=== PATIENT | male | born 2000 | race Caucasian/White ===

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

== ENCOUNTER → 2021-02-14 15:43 | Outpatient (CLI) | payer MEDICAID, SELFPAY ==
[2020-05-28 07:26] VITALS: BMI 27.1
== END ==
PROVIDERS: Referring Provider Nurse Practitioner Acute Care; Visit Provider Nurse Practitioner Acute Care
DX: U07.1 COVID-19 (principal)
CPT/HCPCS: 87635; C9803; U0002

== ENCOUNTER 2021-07-06 13:09 | Emergency (ER) | payer MEDICAID, SELFPAY ==
[2021-07-06 13:11] VITALS: BP 132/88; PULSE 119; RESP 20; TEMP 37.3; O2SAT 94; BMI 29.2
--- NOTE | 2021-07-06 14:41 | RAD_ITS ---
rScriptor Unformatted Report Format: Options: n 2f 2i act cap dr soria wm wcta sl lj Gender: Male : 2000 Exam: XR Chest 1 View Comparison: History: cough Contrast: at 1553 Reported and signed by: Valente Vivas MD Electronically Signed: Valente Vivas MD at 15:52 EDT Tel , Service support , RAD/Chest 1 View (Portable)
--- NOTE | 2021-07-06 14:42 | EDS_ITS ---
HPI HPI - URI History of Present Illness Chief Complaint: Cough Detail of Chief Complaint: Covid symptoms that started yesterday Informant: patient Narrative Narrative: Patient presents to the emergency department with complaint of cough and runny nose as well as headache that started yesterday. He has had subjective fever. Patient states that he feels achy and has a mild sore throat. He denies any loss of taste or smell. Patient denies sick contacts. Patient states that he and his entire family had Covid earlier in the year. Patient has not been vaccinated against Covid. Prior similar symptoms: Yes ROS ROS ED Constitutional Constitutional ED: Reports systems reviewed and no addt'l complaints, except as documented, fever(s) and subjective; Denies body ache(s), change in weight or chills Eyes Eyes: Denies acute decrease in peripheral vision, change in vision, double vision or loss of vision ENT ENT ED: Reports none, rhinorrhea and sore throat; Denies ear pain, lip swelling, loss taste/smell, neck pain or otalgia Cardiovascular Cardiovascular: Reports none; Denies abdominal pain, chest pain with activity, leg edema, lightheadedness, palpitations, rapid heart rate or syncope Respiratory/Chest Respiratory/Chest: Reports none and cough; Denies change in mental status, dry cough, dyspnea, hemoptysis, shortness of breath at rest or shortness of breath with exertion Gastrointestinal Gastrointestinal: Reports none; Denies abdominal pain, change in stool character, diarrhea, hematemesis, hematochezia, melena, rectal bleeding or vomiting Genitourinary Genitourinary ED: Reports none; Denies abdominal discomfort, anuria, dysuria, genital pain or polyuria Musculoskeletal Musculoskeletal: Reports none; Denies arthralgias, back pain, difficulty walking, extremity pain, muscle weakness or myalgias Integumentary Reports none; Denies abscess or rash Neurologic Neurologic: Reports none; Denies abnormal gait, confusion, focal weakness, frequent falls, headache(s), loss of vision, numbness, paresthesias, radicular pain, vertigo or weakness Psychiatric Psychiatric: Reports systems reviewed and no addt'l complaints, except as documented and none; Denies behavioral changes, confusion, difficulty concentrating, hallucinations, suicidal ideation, tactile hallucinations or visual hallucinations Endocrine Endocrinology: Denies none, cold intolerance, excessive sweating, fatigue or heat intolerance Hematologic/Lymphatic Hematologic/Lymphatic: Reports none; Denies anemia, easy bleeding or easy bruising Allergic/Immunologic Allergic/Immunologic ED: Denies as per HPI, none, lip swelling, mouth swelling, throat swelling, tongue swelling or hives PFSH [facility] Medical History (Updated 07/06/21 @ 16:[address] Storm Renner, DO) ADHD Allergic rhinitis, seasonal Aspergers' syndrome Asthma Asthma, moderate persistent Hay fever Seizures SOB (shortness of breath) Home Medications fluoxetine 20 mg capsule 30 mg PO DAILY 09/02/18 [History Last Taken Unknown] guanfacine 1 mg tablet,extended release 24 hr 2 mg PO DAILY 09/02/18 [History Last Taken Unknown] lisdexamfetamine 50 mg capsule 50 mg PO DAILY 09/02/18 [History Last Taken Unkno wn] albuterol sulfate 90 mcg/actuation aerosol inhaler 2 puff INHALATION Q6H PRN #8.5 g 03/18/21 [Rx Last Taken Unknown] fluticasone furoate 100 mcg/actuation blister powder for inhalation 1 inh INHAL ATION DAILY #30 ea 03/18/21 [Rx Last Taken Unknown] cetirizine 10 mg capsule 10 mg PO DAILY #30 cap 04/03/21 [Rx Last Taken Unknown] benzonatate [Tessalon Perles] 100 mg PO TID PRN #20 cap 07/06/21 [Rx Last Taken Unknown] Allergy/AdvReac Type Severity Reaction Status Date / Time No Known Allergies Allergy Verified 07/06/21 13:11 Family History (Reviewed 06/19/21 @ 09:27 by Loreto Rudd SENIOR JAVA DATA ARCHITECT, SENIOR JAVA DATA ARCHITECT-C) Father Asthma Grandfather Diabetes Mother Subaortic stenosis Other Hypertension Surgical History H/O hernia repair History of repaired hypospadias Social History (Reviewed 06/19/21 @ 09:27 by Loreto Rudd SENIOR JAVA DATA ARCHITECT, SENIOR JAVA DATA ARCHITECT-C) Smoking Status: Never smoker second hand exposure: No alcohol intake: never substance use type: does not use EXAM Physical Exam Const Vital Signs: 07/06/21 13:11 07/06/21 15:02 Temperature 99.1 F Temperature Source Temporal Pulse Rate 119 H Respiratory Rate 20 H Respiratory Effort Normal Non-Labored Respiratory Depth Normal Respiratory Pattern Normal Blood Pressure 132/88 H Blood Pressure Mean 102 Pulse Ox 94 Oxygen Delivery Method Room Air Positive well nourished and well developed General Appearance ED: well developed and NAD HEENT Reports TM's clear and moist mucous membranes normocephalic and atraumatic; Negative for trauma or tenderness Tympanic Membrane ED: Yes TM's clear Eyes PERRL and EOMs intact bilaterally General Eye ED: Negative for pale conjunctiva or scleral icterus Neck no lymphadenopathy, supple and no JVD General: Negative for tenderness Chest Wall inspection of chest normal and palpation of chest normal Chest: Negative for tenderness Resp normal respiratory effort and clear to auscultation bilaterally Effort and Inspection: Negative for respiratory distress or pain with movement Auscultation: Negative for rhonchi, wheezes or diminished lung sounds Cardio regular rate, regular rhythm, S1 normal heart sound, S2 normal heart sound and no murmurs Peripheral Pulses: pulses 2+ throughout GI normal to inspection, nondistended, normoactive bowel sounds, soft to palpation, non-tender, non-distended and no masses Back/Spine no CVA tenderness and no thoracic nor lumbar tenderness Extremity normal to inspection General Extremety ED: Negative for edema General Extremity: Negative for edema Neuro oriented x3, CN's II-XII intact bilaterally, no sensory deficits noted and gait normal Sensorium / Orientation: awake, alert, oriented to person, oriented to place and oriented to time Motor Exam: strength 5/5 throughout and strength abnormal Psych mental status grossly normal Skin no rashes or lesions noted and no wounds MDM MDM MDM Narrative Medical decision making narrative: Patient's work-up unremarkable. Patient's vital signs are stable. I suspect a viral URI. I will write him for Elise Milner for the cough. He is advised to push fluids and treat fever with Motrin or Tylenol. Patient to follow-up with his primary care physician 5 to 7 days. He is to return if increased difficulty breathing or condition should worsen anyway. Lab Data Attestation: I reviewed the patient's lab results. Radiography Diagnostic Testing: Radiology Impression Chest X-Ray 07/06/21 14:41 1 view chest x-ray obtained interpreted by myself as no acute disease process. Official report from radiology pending. Discharge Plan Triage Chief Complaint: Cough ED Provider: Storm Renner Dx/Rx/DC Orders Clinical Impression: Upper respiratory infection, viral Instructions: ED URI, Viral, No Abx (Adult) Prescriptions: New benzonatate [Tessalon Perles] 100 mg capsule 100 mg PO TID PRN (Reason: cough) Qty: 20 RF: 0 No Action guanfacine [Intuniv ER] 1 mg tablet extended release 24 hr 2 mg PO DAILY RF: 0 fluoxetine [Prozac] 20 mg capsule 30 mg PO DAILY RF: 0 Vyvanse 50 mg capsule 50 mg PO DAILY RF: 0 Arnuity Ellipta 100 mcg/actuation blister with device 1 inh INHALATION DAILY Qty: 30 RF: 11 albuterol sulfate 90 mcg/actuation HFA aerosol inhaler 2 puff inhalation Q6H PRN (Reason: shortness of breath or wheezing) Qty: 8.5 RF: 1 Zyrtec 10 mg capsule 10 mg PO DAILY Qty: 30 RF: 6 Primary Care Provider: Care Physician,No Primary Referrals: Gregory Gray MD [STAFF PHYSICIAN] - 5-7 Days Care Physician,No Primary [Primary Care Provider] -
== END 2021-07-06 16:40 | disposition home or self-care (01) ==
LOC: ED 14:46
PROVIDERS: Emergency Provider Emergency Medicine
DX: J06.9 Acute upper respiratory infection, unspecified (principal); F90.9 Attention-deficit hyperactivity disorder, unspecified type; J45.40 Moderate persistent asthma, uncomplicated; F84.5 Asperger's syndrome; G40.909 Epilepsy, unspecified, not intractable, without status epilepticus; Z79.899 Other long term (current) drug therapy
CPT/HCPCS: 71045; 87426; 87804; 99282

== ENCOUNTER → 2021-07-28 16:44 | Emergency (ER) | payer MEDICAID, SELFPAY ==
[2021-07-28 16:44] VITALS: BP 123/72; PULSE 98; RESP 18; TEMP 36; O2SAT 96; BMI 29.9
== END ==
DX: Z53.21 Procedure and treatment not carried out due to patient leaving prior to being seen by health care provider (principal)

== ENCOUNTER 2022-01-03 15:32 | Emergency (ER) | payer MEDICAID, SELFPAY ==
[2022-01-03 15:33] VITALS: BP 141/76; PULSE 101; RESP 16; TEMP 36.7; O2SAT 94; BMI 29.9
--- NOTE | 2022-01-03 15:42 | EKG12_ITS ---
Test Reason : ANXIETY Blood Pressure : / mmHG Vent. Rate : 094 BPM Atrial Rate : 094 BPM P-R Int : 158 ms QRS Dur : 090 ms QT Int : 352 ms P-R-T Axes : 039 032 030 degrees QTc Int : 440 ms Normal sinus rhythm Nonspecific ST abnormality Abnormal ECG Confirmed by TAMMY MANCILLA, YELENA ([id number]), market editor LEONA LEE ([id number]) on 01/07/2022 12:35:01 P M Referred By: JEF Confirmed By:ABNER MUNOZ MD
--- NOTE | 2022-01-03 15:42 | RAD_ITS ---
STUDY: X-RAY CHEST REASON FOR EXAM: Male, 21 years old. PT WITH SUDDEN ONSET SOB. REPORTS INCREASED STRESS, HAS HAD COUGH X A COUPLE DAYS TECHNIQUE: AP COMPARISON: 07/06/2021 FINDINGS: The lungs are clear and expanded. There is no demonstrated pleural abnormality. Normal size heart. Normal mediastinum and tao. Normal visualized pulmonary arteries. Normal visualized aortic arch and descending thoracic aorta. Normal visualized thoracic spine. Normal visualized ribs, clavicles, and shoulders. There is no demonstrated abnormality of the visualized soft tissue structures of the upper abdomen. RAD/Chest 1 View (Portable) IMPRESSION: Nonacute portable x-ray examination of the chest. Electronically Signed: Vasquez Arellano MD (Brooks) at 16:04 EST ,
--- NOTE | 2022-01-03 15:44 | EDS_ITS ---
HPI <SILVIA Emmanuel - Last Filed: 01/03/22 16:34> History of Present Illness Chief Complaint: Anxiety Narrative Narrative: 21-year-old male with PMH of asthma, anxiety presents with shortness of breath. For the last 3 to 4 days he has had a dry cough and felt slightly short of breath. He started using an inhaler and prednisone 50 mg tablets that he had lying around from a previous illness. Today while working at [employer] he started to feel anxious because a lot of orders started to come in it once. He felt like his mind was racing and he developed acute worsening of his shortness of breath and had some midsternal chest pain. He is also having a dry cough with the symptoms and feels nauseous. No vomiting. No recent fever, chills, abdominal pain, flank pain, or leg pain or swelling. He did have COVID-19 1 month ago. PFSH <SILVIA Emmanuel - Last Filed: 01/03/22 16:34> [facility] Medical History ADHD Allergic rhinitis, seasonal Aspergers' syndrome Asthma Asthma, moderate persistent COVID-19 Hay fever Seizures SOB (shortness of breath) Home Medications fluoxetine 20 mg capsule 30 mg PO DAILY 09/02/18 [History Last Taken Unknown] guanfacine 1 mg tablet,extended release 24 hr 2 mg PO DAILY 09/02/18 [History Last Taken Unknown] lisdexamfetamine 50 mg capsule 50 mg PO DAILY 09/02/18 [History Last Taken Unknown] cetirizine 10 mg capsule 10 mg PO DAILY #30 cap 04/03/21 [Rx Last Taken Unknown] benzonatate [Tessalon Perles] 100 mg PO TID PRN #20 cap 07/06/21 [Rx Last Taken Unknown] guaifenesin 600 mg tablet, extended release 12 hr 600 mg PO Q12H PRN #14 tab 10/11/21 [Rx Last Taken Unknown] albuterol sulfate 90 mcg/actuation aerosol inhaler 2 puff INHALATION Q6H PRN #8.5 g 12/24/21 [Rx Last Taken Unknown] fluticasone furoate 100 mcg/actuation blister powder for inhalation 1 inh INHALATION DAILY #30 ea 12/24/21 [Rx Last Taken Unknown] hydroxyzine HCl 25 mg PO TID #14 tab 01/03/22 [Rx Last Taken Unknown] prednisone 50 mg PO DAILY 01/03/22 [History Last Taken Unknown] Allergy/AdvReac Type Severity Reaction Status Date / Time No Known Allergies Allergy Verified 01/03/22 15:33 Family History Father Asthma Grandfather Diabetes Mother Subaortic stenosis Other Hypertension Surgical History H/O hernia repair History of repaired hypospadias Social History Smoking Status: Never smoker second hand exposure: No alcohol intake: never substance use type: does not use ROS <SILVIA Emmanuel - Last Filed: 01/03/22 16:34> ROS ED ROS Narrative Constitutional: Negative for fever, chills, malaise. Eyes: Negative for visual change. ENT: Negative for sore throat, ear pain, rhinorrhea. CVS: Positive for chest pain. Negative for palpitations, syncope. Respiratory: Positive for shortness of breath, cough. Negative for orthopnea. GI: Positive for nausea. Negative for abdominal pain, vomiting, diarrhea, co nstipation, melena, hematochezia. : Negative for dysuria, hematuria or frequency. Neuro: Negative for headache, motor/sensory dysfunction. Skin: Negative for rash, abscess, or wound. Musc: Negative for joint pain, swelling, trauma. Heme: Negative for easy bruising, bleeding, lymphadenopathy. EXAM <SILVIA Emmanuel - Last Filed: 01/03/22 16:34> Physical Exam Narrative Exam Narrative: CONST: Patient sitting in no acute distress. EYES: Normal inspection. NECK: Normal inspection. RESP: No respiratory distress, CTAB. CVS: Regular rate and rhythm, no murmur, no gallop. ABD: Soft and nontender, no guarding or rebound, nondistended. SKIN: Color normal, no rash, warm, dry, intact. EXTREMITIES: Normal appearance, no pedal edema, no calf tenderness. 2+ radial and PT pulses. NEURO: Oriented x4. PSYCH: Normal affect. Const Vital Signs: 01/03/22 15:33 01/03/22 15:46 01/03/22 16:49 Temperature 98.0 F Temperature Source Oral Pulse Rate 101 H 84 Respiratory Rate 16 16 Respiratory Effort Short of Breath Blood Pressure 141/76 H 138/79 H Blood Pressure Mean 97 Pulse Ox 94 97 Oxygen Delivery Method Room Air Room Air <Dr. Gregory Katz DO - Last Filed: 01/03/22 18:14> Physical Exam Const Vital Signs: 01/03/22 15:33 01/03/22 15:46 01/03/22 16:49 Temperature 98.0 F Temperature Source Oral Pulse Rate 101 H 84 Respiratory Rate 16 16 Respiratory Effort Short of Breath Blood Pressure 141/76 H 138/79 H Blood Pressure Mean 97 Pulse Ox 94 97 Oxygen Delivery Method Room Air Room Air MDM <SILVIA Emmanuel - Last Filed: 01/03/22 16:34> [facility] MDM Narrative Medical decision making narrative: Patient presented with chest pain, shortness of breath, and cough that started while becoming acutely anxious at work. He appears well nontoxic. Heart rate was 100?1 05, otherwise normal vital signs. On exam he is sitting in no acute distress and heart is regular, lungs clear to auscultation, abdomen soft and nontender. There is no lower extremity swelling or calf tenderness. EKG was obtained and is normal sinus rhythm with no acute ischemia. Chest x-ray is negative. His symptoms are most consistent with an anxiety attack. He has a history of anxiety that is untreated as he has not been on an SSRI in over 6 months. He did have clinical improvement after hydroxyzine will be prescribed this for home to take as needed. I recommend he follow-up with his primary care doctor for further anxiety management. He was counseled to return for new or worsening symptoms. Diagnosis 1. Anxiety attack Lab Data Attestation: I reviewed the patient's lab results. Radiography Chest X-Ray - ED: 1 View, Read by ED Physician, Normal, Heart, Lungs, Mediastinum, Bony Structures and No Acute Disease Diagnostic Testing: Clinical Impression(s) from Imaging Studies Chest X-Ray 01/03/22 15:42 IMPRESSION: Nonacute portable x-ray examination of the chest. Electronically Signed: Vasquez Arellano MD (Brooks) at 16:04 EST , EKG Initial EKG: Attestation: I personally reviewed and interpreted this EKG as follows: Interpretation: Sinus Rhythm Comments: NSR, normal intervals, no acute ischemic changes <Dr. Gregory Katz, DO - Last Filed: 01/03/22 18:14> [facility] Narrative Medical decision making narrative: Patient was seen with me. I agree with the history and physical examination. Patient presents with anxiety and shortness of breath that began today while he was at work. Patient states that work became very stressful. Patient states that he started feeling short of breath when this occurred. Patient states his symptoms are improving since arriving to the emergency department. Patient denies any chest pain. Patient denies any nausea or vomiting. Vital signs are stable. Patient is afebrile. Patient is in no acute distress. Oral mucosa is pink and moist. Heart was regular rate and rhythm. Lungs are clear and equal bilaterally. Abdomen is soft. Bowel sounds are normal. There is no tenderness. Cranial nerves II through XII are intact. There are no focal motor or sensory deficits. Portable 1 view chest x-ray was obtained. On my interpretation, lung loza are clear. There is normal cardiac silhouette. Bony thorax is normal. There is no acute process noted. Radiologist also interpreted the x-ray and agrees. EKG was obtained. There is a normal sinus rhythm. There are no acute ST or T wave changes. Patient was given a dose of hydroxyzine here. Patient feels better on reevaluation. Patient was instructed to follow-up with his primary care physician in 3 to 5 days. Patient understood and was agreeable with the plan. All questions were answered. Radiography Diagnostic Testing: Clinical Impression(s) from Imaging Studies Chest X-Ray 01/03/22 15:42 IMPRESSION: Nonacute portable x-ray examination of the chest. Electronically Signed: Vasquez Arellano MD (Brooks) at 16:04 EST Reading Location ID and State: [facility] / [place] , Service support , Discharge Plan Triage Chief Complaint: Anxiety ED Provider: Kaitlin Tam Dx/Rx/DC Orders Clinical Impression: Anxiety Instructions: Anxiety Disorders Tx Therapy Prescriptions: New hydroxyzine HCl 25 mg tablet 25 mg PO TID Qty: 14 RF: 0 No Action guanfacine [Intuniv ER] 1 mg tablet extended release 24 hr 2 mg PO DAILY RF: 0 fluoxetine [Prozac] 20 mg capsule 30 mg PO DAILY RF: 0 Vyvanse 50 mg capsule 50 mg PO DAILY RF: 0 Arnuity Ellipta 100 mcg/actuation blister with device 1 inh INHALATION DAILY Qty: 30 RF: 11 albuterol sulfate 90 mcg/actuation HFA aerosol inhaler 2 puff inhalation Q6H PRN (Reason: shortness of breath or wheezing) Qty: 8.5 RF: 1 guaifenesin [Mucinex] 600 mg tablet extended release 12hr 600 mg PO Q12H PRN (Reason: cough, congestion) Qty: 14 RF: 0 benzonatate [Tessalon Perles] 100 mg capsule 100 mg PO TID PRN (Reason: cough) Qty: 20 RF: 0 prednisone 50 mg Tablet 50 mg PO DAILY RF: 0 Zyrtec 10 mg capsule 10 mg PO DAILY Qty: 30 RF: 6 Primary Care Provider: Care Physician,No Primary Referrals: Care Physician,No Primary [Primary Care Provider] - Activity Restrictions/Additional Instructions: Today your chest x-ray and EKG both look normal. Your symptoms are most c onsistent with an anxiety attack and you were treated with a medication called hydroxyzine. I prescribed this for home to take as needed. Please follow-up with your primary care doctor to discuss your anxiety in case you need started on any new medications for longer-term control. Disposition Disposition: Home, Self Care Discharge Date/Time: 01/03/22 16:50
[2022-01-03 15:46] VITALS: O2SAT 97
[2022-01-03] MEDS: hydrOXYzine PAM 25 MG Capsule PO (15:46)
--- NOTE | 2022-01-03 15:53 | ED.RN ---
SILVIA Madrigal asked to wait on IV and bloodwork at this time
[2022-01-03 16:49] VITALS: BP 138/79; PULSE 84; RESP 16; O2SAT 97
== END 2022-01-03 16:50 | disposition home or self-care (01) ==
PROVIDERS: Emergency Provider Physician Assistant; Visit Provider Physician Assistant
DX: F41.0 Panic disorder [episodic paroxysmal anxiety] (principal); G40.909 Epilepsy, unspecified, not intractable, without status epilepticus; F90.9 Attention-deficit hyperactivity disorder, unspecified type; F84.5 Asperger's syndrome; J45.40 Moderate persistent asthma, uncomplicated; Z86.16 Personal history of COVID-19; Z79.899 Other long term (current) drug therapy
CPT/HCPCS: 71045; 93005; 99285

== ENCOUNTER 2022-06-03 15:25 | Emergency (ER) | payer MEDICAID, SELFPAY ==
[2022-06-03 15:25] VITALS: BP 126/78; PULSE 99; RESP 18; TEMP 36.6; O2SAT 96; BMI 31.6
--- NOTE | 2022-06-03 15:45 | EDS_ITS ---
HPI History of Present Illness Chief Complaint: General Illness Narrative Narrative: 21-year-old male presenting with fever, chills, body aches, cough, nausea, vomiting, diarrhea. Patient states has been ongoing for about 3 days. He is able to hold down some fluids. He states his highest temperature was 99. Patient states that his brother came home from camp where there was a COVID-19 outbreak and he was diagnosed with COVID today at home test. Patient's test was negative at home. Patient tried to call into work and his job he reports they him to come to the emergency room to be tested for COVID. He states that they stated that if he did not get a work note from the emergency room that he will be terminated. [facility] Medical History ADHD Allergic rhinitis, seasonal Aspergers' syndrome Asthma Asthma, moderate persistent COVID-19 Hay fever Seizures SOB (shortness of breath) Home Medications fluoxetine 20 mg capsule (Prozac) 30 mg PO DAILY 09/02/18 [History Last Taken Unknown] guanfacine 1 mg tablet,extended release 24 hr (Intuniv ER) 2 mg PO DAILY 09/02/18 [History Last Taken Unknown] lisdexamfetamine 50 mg capsule (Vyvanse) 50 mg PO DAILY 09/02/18 [History Last Taken Unknown] cetirizine 10 mg capsule (Zyrtec) 10 mg PO DAILY #30 caps 04/03/21 [Rx Last Taken Unknown] benzonatate 100 mg capsule (Tessalon Perles) 100 mg PO TID PRN cough #20 caps 07/06/21 [Rx Last Taken Unknown] guaifenesin 600 mg tablet, extended release 12 hr (Mucinex) 600 mg PO Q12H PRN cough, congestion #14 tabs 10/11/21 [Rx Last Taken Unknown] albuterol sulfate 90 mcg/actuation aerosol inhaler 2 puff inhalation Q6H PRN shortness of breath or wheezing #8.5 grams 12/24/21 [Rx Last Taken Unknown] fluticasone furoate 100 mcg/actuation blister powder for inhalation (Arnuity Ellipta) 1 inh inhalation DAILY #30 ea 12/24/21 [Rx Last Taken Unknown] hydroxyzine HCl 25 mg tablet 25 mg PO TID anxiety #14 tabs 01/03/22 [Rx Last Taken Unknown] prednisone 50 mg tablet 50 mg PO DAILY 01/03/22 [History Last Taken Unknown] ondansetron 4 mg disintegrating tablet 4 mg PO Q8H PRN nausea and vomiting #14 tabs 06/03/22 [Rx Last Taken Unknown] Allergy/AdvReac Type Severity Reaction Status Date / Time No Known Allergies Allergy Verified 06/03/22 15:30 Family History Father Asthma Grandfather Diabetes Mother Subaortic stenosis Other Hypertension Surgical History H/O hernia repair History of repaired hypospadias Social History Smoking Status: Never smoker second hand exposure: No alcohol intake: never substance use type: does not use ROS ROS ED Constitutional Constitutional ED: Denies chills or fever(s) Eyes Eyes: Reports blurry vision left EXAM Physical Exam Const Vital Signs: 06/03/22 15:25 06/03/22 16:04 Temperature 98 F Temperature Source Temporal Pulse Rate 99 Respiratory Rate 18 Respiratory Effort Normal Non-Labored Respiratory Pattern Normal Blood Pressure 126/78 H Blood Pressure Mean 94 Pulse Ox 96 Oxygen Delivery Method Room Air Positive well nourished General Appearance ED: NAD; Negative for pallor HEENT Reports moist mucous membranes Eyes PERRL and EOMs intact bilaterally General Eye ED: Negative for pale conjunctiva or scleral icterus Chest Wall inspection of chest normal and palpation of chest normal Resp normal respiratory effort and clear to auscultation bilaterally Effort and Inspection: Negative for retractions Auscultation: Negative for rales, rhonchi or wheezes Cardio regular rate and regular rhythm GI normal to inspection, nondistended, normoactive bowel sounds Auscultation: normoactive bowel sounds Extremity normal to inspection General Extremety ED: Negative for edema or tenderness General Extremity: Negative for edema Neuro oriented x3 and CN's II-XII intact bilaterally Psych mental status grossly normal Skin no rashes or lesions noted General Skin Exam: Negative for jaundice or pallor MDM MDM MDM Narrative Medical decision making narrative: Patient states he needs a work note. He believes he has COVID-19 because his brother has not currently and has similar symptoms. His home test were negative x2. Since his symptoms of been going on for 3 days at all think there is any need to test him for influenza and since he has a brother in his home currently positive for COVID I think this is the most likely source. Patient is well- appearing. Vital signs are stable he is afebrile. Heart and lung exam is normal. Patient given ODT Zofran and COVID PCR was collected. Patient was able to drink water after receiving Zofran. His vital signs again are stable and he is afebrile. Is nontoxic-appearing. I do not believe he needs a further work- up. He is given a work note for the next 4 days. He will follow-up for his COVID results. I did receive the COVID testing results and these are negative. Patient likely has viral syndrome or is testing negative for COVID. Its likely he has COVID is brother has it in the same household and he tested positive today. Impression: 1. Nausea/vomiting Lab Data Attestation: I reviewed the patient's lab results. Labs: Laboratory Results - last 24 hr 06/03/22 16:02 COVID-19 (ANDREI) Not Detected Discharge Plan Triage Chief Complaint: General Illness ED Provider: Jeffrey Issa Dx/Rx/DC Orders Instructions: ED Viral Syndrome (Adult) Prescriptions: New ondansetron 4 mg tablet,disintegrating 4 mg PO Q8H PRN (Reason: nausea and vomiting) Qty: 14 0RF No Action guanfacine [Intuniv ER] 1 mg tablet extended release 24 hr 2 mg PO DAILY fluoxetine [Prozac] 20 mg capsule 30 mg PO DAILY Vyvanse 50 mg capsule 50 mg PO DAILY Arnuity Ellipta 100 mcg/actuation blister with device 1 inh INHALATION DAILY Qty: 30 11RF albuterol sulfate 90 mcg/actuation HFA aerosol inhaler 2 puff inhalation Q6H PRN (Reason: shortness of breath or wheezing) Qty: 8.5 1RF guaifenesin [Mucinex] 600 mg tablet extended release 12hr 600 mg PO Q12H PRN (Reason: cough, congestion) Qty: 14 0RF benzonatate [Tessalon Perles] 100 mg capsule 100 mg PO TID PRN (Reason: cough) Qty: 20 0RF prednisone 50 mg Tablet 50 mg PO DAILY hydroxyzine HCl 25 mg tablet 25 mg PO TID Qty: 14 0RF Zyrtec 10 mg capsule 10 mg PO DAILY Qty: 30 6RF Primary Care Provider: Care Physician,No Primary Referrals: Care Physician,No Primary [Primary Care Provider] - Disposition Disposition: Home, Self Care Discharge Date/Time: 06/03/22 17:20
[2022-06-03] MEDS: Ondansetron ODT 4 MG Tablet PO (16:03)
--- NOTE | 2022-06-03 16:03 | CM.ED ---
SW Note Referral Source: Case Find Referral Reason: No Primary Care Physician (PCP) SW reviewed chart and noted that patient has no PCP. SW provided patient with list of [facility] and [facility] Physician List for reference. SW also provided patient with handout ?Where to go When?. No other issues or concerns voiced at this time. SW remains available for any additional needs. Plan: Provided patient with PCP information Jaz DEY
== END 2022-06-03 17:20 | disposition home or self-care (01) ==
PROVIDERS: Emergency Provider Student in an Organized Health Care Education/Training Program; Visit Provider Student in an Organized Health Care Education/Training Program
DX: R11.2 Nausea with vomiting, unspecified (principal); G40.909 Epilepsy, unspecified, not intractable, without status epilepticus; F90.9 Attention-deficit hyperactivity disorder, unspecified type; J45.40 Moderate persistent asthma, uncomplicated; Z86.16 Personal history of COVID-19; F84.5 Asperger's syndrome; Z79.899 Other long term (current) drug therapy
CPT/HCPCS: 87635; 99282; U0003; U0005

== ENCOUNTER 2025-02-21 15:18 | Emergency (ER) | payer OTHER, SELFPAY ==
[2025-02-21] VITALS (7 sets, daily range): BP systolic 116–138; BP diastolic 62–92; PULSE 89–105; RESP 16–22; TEMP 36.1–36.2; O2SAT 97–99; BMI 33.4
--- NOTE | 2025-02-21 15:37 | EDS_ITS ---
HPI History of Present Illness Chief Complaint: Chest Pain Informant: patient Onset/Context/Timing Onset: Days (5) Activity at onset: gradual Timing: Intermittent Quality: Positive for Tightness Location: - (Bilateral lower chest) Worsened By: Movement of Torso Relieved By: Rest Associated Symptoms: Positive for Dyspnea and Cough; Negative for Nausea, Vomiting, Diaphoresis, Fever, Lightheadedness, Acid Reflux or Palpitations Narrative Narrative: Patient presents with chest pain that has been intermittent over the last 5 days. Patient states it is gradually gotten worse. Patient describes it as tightness. Patient states it is over his lower chest. Patient denies any fevers or chills. Patient admits to some shortness of breath and cough. Patient denies any nausea or vomiting. Patient denies any diaphoresis. Patient denies any lightheadedness or dizziness. CVD Risk Factors: Negative for Hypertension, Diabetes, Hypercholesterolemia, Family History 1' </=55 or Smoking PE Risk Factors: Negative for Recent Travel/Surgery, Recent Immobilization, Prior DVT or PE, Cancer or OCP + Smoking + >/=35 PFSH PFSH Medical History COVID-19 Seizures Asthma Hay fever SOB (shortness of breath) Aspergers' syndrome ADHD Asthma, moderate persistent Allergic rhinitis, seasonal Home Medications ?Medication ?Instructions ?Recorded ?Last Taken ?Type ondansetron 4 mg disintegrating 4 mg PO Q8H PRN nausea and 06/03/22 Unknown Rx tablet vomiting #14 tabs fluticasone furoate 100 1 inh inhalation Q24H #30 ea 12/23/22 Unknown Rx mcg/actuation blister powder for inhalation (Arnuity Ellipta) albuterol sulfate 90 mcg/actuation 2 puff inhalation Q 6H PRN 05/12/23 Unknown Rx aerosol inhaler (Ventolin HFA) shortness of breath or wheezing #8.5 grams albuterol sulfate 90 mcg/actuation 1 - 2 puff inhalati on Q4H PRN PRN 02/21/25 Unknown Rx aerosol inhaler (Ventolin HFA) Wheezing ##1 Allergy/AdvReac Type Severity Reaction Status Date / Time No Known Allergies Allergy Verified 02/21/25 15:21 Family History Father Asthma Grandfather Diabetes Mother Subaortic stenosis Other Hypertension Surgical History H/O hernia repair History of repaired hypospadias Social History Smoking Status: Never smoker second hand exposure: No alcohol intake: never substance use type: does not use ROS ROS ED Constitutional Constitutional ED: Denies chills or fever(s) Eyes Eyes: Denies blurry vision or change in vision ENT ENT ED: Denies rhinorrhea or sore throat Cardiovascular Cardiovascular: Denies chest pain or palpitations Respiratory/Chest Respiratory/Chest: Reports cough and dyspnea Gastrointestinal Gastrointestinal: Denies nausea or vomiting Genitourinary Genitourinary ED: Denies dysuria or hematuria Musculoskeletal Musculoskeletal: Reports neck pain; Denies back pain Integumentary Denies abscess or rash Neurologic Neurologic: Denies headache(s) or weakness Allergic/Immunologic Allergic/Immunologic ED: Denies mouth swelling or urticaria EXAM Physical Exam Const Vital Signs: 02/21/25 15:19 02/21/25 15:23 02/21/25 16:13 Temperature 97.2 F L Temperature Source Temporal Pulse Rate 93 89 Respiratory Rate 21 H 19 H Respiratory Effort Normal Non-Labored Respiratory Pattern Blood Pressure 138/80 H 116/92 H Blood Pressure Mean 99 100 Pulse Ox 98 97 Oxygen Delivery Method Room Air Room Air 02/21/25 16:15 02/21/25 17:00 02/21/25 18:00 Temperature Temperature Source Pulse Rate 89 98 105 H Respiratory Rate 18 16 22 H Respiratory Effort Respiratory Pattern Normal Blood Pressure 129/77 H 131/69 H Blood Pressure Mean 94 89 Pulse Ox 98 97 Oxygen Delivery Method Room Air Room Air Positive well nourished and well developed General Appearance ED: well developed and NAD HEENT Reports moist mucous membranes normocephalic and atraumatic Neck supple and no JVD Resp normal respiratory effort Auscultation: wheezes expiratory wheezes and throughout Cardio regular rate and regular rhythm GI soft to palpation, non-tender and non-distended Neuro oriented x3, CN's II-XII intact bilaterally and no sensory deficits noted Sensorium / Orientation: awake and alert Motor Exam: strength 5/5 throughout Psych mental status grossly normal Heart Score History: Slightly/Non-Suspicious ECG: Normal Age: </= 45 years Risk Factors: No Risk Factors Score: 0 MDM MDM MDM Narrative Medical decision making narrative: Differential diagnosis includes cardiac dysrhythmia, cardiac ischemia, pneumonia, bronchitis, reactive airway disease, and viral illness. EKG will be obtained to assess for cardiac dysrhythmia and cardiac ischemia. Chest x-ray will be obtained to assess for pneumonia and bronchitis. COVID-19, influenza, and RSV PCR will be obtained to assess for viral illness. Lab Data Lab results narrative: COVID-19 PCR was reviewed and was negative. Influenza PCR was reviewed and was negative for influenza A and influenza B. RSV PCR was reviewed and was negative. Radiography Chest X-Ray - ED: 2 View, Read by ED Physician, Read by Radiologist and No Acute Disease Diagnostic Testing: Clinical Impression(s) from Imaging Studies Chest X-Ray 02/21/25 16:47 IMPRESSION: 1. No visible acute cardiopulmonary findings 2. Additional description as above. Reading Location: [facility] and lateral chest x-ray was obtained. There are 2 views. On my independent interpretation, lung loza are clear. There is normal cardiac silhouette. Bony thorax is normal. There is no acute process noted. Radiologist also interpreted the x-ray and agrees. EKG Initial EKG: Attestation: I personally reviewed and interpreted this EKG as follows: Interpretation: Sinus Rhythm (91) and No Acute Injury Pattern Comments: EKG was obtained. On my independent interpretation, it showed a normal sinus rhythm with a rate of 91. UT interval, QRS interval, and QTc intervals were all normal. [place] was normal. There are no acute ST or T wave changes. Prior EKG tracings: available for review Prior: Unchanged (01/03/2022) Treatment and Re-Evaluation :: Patient was given a DuoNeb aerosol here. Patient was given injection of Toradol. Patient was advised of his findings. Patient has a HEART score of 0. Patient was advised that this is low risk for acute cardiac event. Patient was given prescription for albuterol inhaler. Patient was instructed to use [id number] ibuprofen or Tylenol as needed for pain. Patient was instructed to follow-up with his primary care physician in 5 to 7 days. Patient understood and was agreeable with the plan. All questions were answered. Discharge Plan Triage Chief Complaint: Chest Pain ED Provider: Gregory Katz Dx/Rx/DC Orders Clinical Impression: Chest pain, Reactive airway disease Instructions: ED Chest Pain, Noncardiac Prescriptions: New albuterol sulfate [Ventolin HFA] 90 mcg/actuation HFA aerosol inhaler 1 - 2 puff inhalation Q4H PRN PRN (Reason: Wheezing) Qty: 1 0RF No Action Arnuity Ellipta 100 mcg/actuation blister with device 1 inh inhalation Q24H Qty: 30 11RF ondansetron 4 mg tablet,disintegrating 4 mg PO Q8H PRN (Reason: nausea and vomiting) Qty: 14 0RF albuterol sulfate [Ventolin HFA] 90 mcg/actuation HFA aerosol inhaler 2 puff inhalation Q6H PRN (Reason: shortness of breath or wheezing) Qty: 8.5 6RF Stand Alone Forms: Work / School Excuse Primary Care Provider: Care Physician,No Primary Referrals: Care Physician,No Primary [Primary Care Provider] - Michael Patricia, TRAINING PERSONNEL SUPERVISOR-C [[facility]] - 5-7 Days Print Language: Belgian Disposition Disposition: Home, Self Care
--- NOTE | 2025-02-21 16:05 | EKG12_ITS ---
Test Reason : CP Blood Pressure : */* mmHG Vent. Rate : 91 BPM Atrial Rate : 91 BPM P-R Int : 162 ms QRS Dur : 86 ms QT Int : 350 ms P-R-T Axes : 48 49 38 degrees QTcB Int : 430 ms Normal sinus rhythm Normal ECG Confirmed by DAMON MANCILLA, JESSICA ([id number]), makeup editor LEONA LEE ([id number]) on 02/22/2025 8:40:42 AM Referred By: Confirmed By: JESSICA JOSE MD
[2025-02-21] MEDS: Ipratropium/Albuterol Sulfate 3 ML AMPUL.NEB INHALATION (16:13)
--- NOTE | 2025-02-21 16:47 | RAD_ITS ---
PROCEDURE: CHEST PA AND LATERAL 02/21/2025 REASON FOR EXAM: DYSPNEA TECHNIQUE: Frontal and lateral views of the chest. COMPARISON: None. FINDINGS: Heart: Unremarkable. Mediastinum: Unremarkable. Lungs/pleura: No focal consolidation. No pleural effusion or visible pneumothorax. Bones: Trace cervicothoracic levoscoliosis may be positional. Lines and support devices: None. Other: None. RAD/Chest PA and Lateral IMPRESSION: 1. No visible acute cardiopulmonary findings 2. Additional description as above. Reading Location: [id number]
[2025-02-21] MEDS: Ketorolac 30 MG/ML Syringe IM (18:37)
== END 2025-02-21 19:27 | disposition home or self-care (01) ==
PROVIDERS: Emergency Provider Emergency Medicine; Visit Provider Emergency Medicine
DX: R07.9 Chest pain, unspecified (principal); J45.909 Unspecified asthma, uncomplicated; R06.02 Shortness of breath; Z79.51 Long term (current) use of inhaled steroids
CPT/HCPCS: 71046; 87631; 93005; 94640; 96372; 99283